=== PATIENT | male | born 1950 | race Caucasian/White ===

== ENCOUNTER 2016-07-26 08:29 | Day surgery (SDC) | payer MEDICARE ==
--- NOTE | ~2016-07-26 | EGD ---
EGD REPORT [facility] [address] [address] NAME: BRADY GOODWIN : [birth year] STATUS : REG [facility] [place] PAT#: [id number] AGE: 65 ADM/REG DATE : 07/26/16 MR#: [id number] REPORT SERV DATE: 07/26/16 DICTATED BY: BRADY SCOTT DATE: 07/26/16 REPORT STATUS : Draft TRANSCRIBED BY: [employer] DATE: 07/26/16 [facility]oscopy Center Patient Name: Brady Goodwin Date of : 1950 Attending MD: BRADY SCOTT MD Procedure Date No Time: 07/26/2016 Procedure: Colonoscopy Indications: Rectal bleeding, FH of Colon Cancer - 1st degree relative Referring MD: FELECIA PEARSON Medicines: as per anesthesia Complications: No immediate complications. Procedure: Pre-Anesthesia Assessment: - ASA Grade Assessment: III - A patient with severe systemic disease. After I obtained informed consent, the scope was passed under direct vision. Throughout the procedure, the patient's blood pressure, pulse, and oxygen saturations were monitored continuously. The PCF [id number] was introduced through the anus and advanced to the cecum, identified by appendiceal orifice and ileocecal valve. The colonoscopy was somewhat difficult due to a tortuous colon. The patient tolerated the procedure. The quality of the bowel preparation was fair. Findings: The perianal and digital rectal examinations were normal. Internal hemorrhoids were found during endoscopy and were mild. Impression: - Internal hemorrhoids. Recommendation: - Repeat colonoscopy in 5 years for surveillance. Procedure Code(s): --- Professional --- 98426, Colonoscopy, flexible, proximal to splenic flexure; diagnostic, with or without collection of specimen(s) by brushing or washing, with or without colon decompression (separate procedure) Diagnosis Code(s): --- Professional --- K64.8, Other hemorrhoids K62.5, Hemorrhage of anus and rectum Z80.0, Family history of malignant neoplasm of digestive organs EGD REPORT [facility] [address] [place] [address] [address] [address] NAME: BRADY GOODWIN : [birth year] STATUS : REG [facility]#: [id number] AGE: 65 ADM/REG DATE : 07/26/16 MR#: [id number] REPORT SERV DATE: 07/26/16 DICTATED BY: BRADY SCOTT. DATE: 07/26/16 REPORT STATUS : Draft TRANSCRIBED BY: [employer] DATE: 07/26/16 CPT copyright 2013 [employer]. All rights reserved. The codes documented in this report are preliminary and upon engine buildup mechanic review may be revised to meet current compliance requirements. BRADY SCOTT MD 07/26/2016 11:08 AM This report has been signed electronically. Number of Addenda: 0 Note Initiated On: 07/26/2016 10:17 AM Scope Withdrawal Time 0 hours 12 minutes 38 seconds [address] [place] [address]
--- NOTE | ~2016-07-26 | EGD ---
EGD REPORT [facility] [address] [address] NAME: VARSHA GOODWIN : [birth year] STATUS : [facility] [place] PAT#: [id number] AGE: 65 ADM/REG DATE : 07/26/16 MR#: [id number] REPORT SERV DATE: 07/26/16 DICTATED BY: VARSHA SCOTT DATE: 07/26/16 REPORT STATUS : Draft TRANSCRIBED BY: [employer] DATE: 07/26/16 Endoscopy Center Patient Name: Varsha Goodwin Date of : 1950 Attending MD: VARSHA SCOTT MD Procedure Date No Time: 07/26/2016 Procedure: Upper GI endoscopy Indications: Periumbilical abdominal pain, Melena, Personal history of peptic ulcer disease Referring MD: FELECIA PEARSON Medicines: as per anesthesia Complications: No immediate complications. Procedure: Pre-Anesthesia Assessment: - ASA Grade Assessment: III - A patient with severe systemic disease. After obtaining informed consent, the endoscope was passed under direct vision. Throughout the procedure, the patient's blood pressure, pulse, and oxygen saturations were monitored continuously. The GIF H190 [id number] was introduced through the mouth, and advanced to the third part of duodenum. The upper GI endoscopy was accomplished without difficulty. The patient tolerated the procedure. Findings: A prior Ayla fundoplication was found at the gastroesophageal junction. This was characterized by an intact appearance. The entire examined stomach was normal. The examined duodenum was normal. Impression: - A Ayla fundoplication was found. - Normal stomach. - Normal examined duodenum. Recommendation: - Continue present medications. Procedure Code(s): --- Professional --- 89507, Esophagogastroduodenoscopy, flexible, transoral; diagnostic, including collection of specimen(s) by brushing or washing, when performed (separate procedure) Diagnosis Code(s): --- Professional --- Z98.0, Intestinal bypass and anastomosis status R10.33, Periumbilical pain K92.1, Melena EGD REPORT [facility] [address] [address] NAME: VARSHA GOODWIN : [birth year] STATUS : [facility] [place] PAT#: [id number] AGE: 65 ADM/REG DATE : 07/26/16 MR#: [id number] REPORT SERV DATE: 07/26/16 DICTATED BY: VARSHA SCOTT. DATE: 07/26/16 REPORT STATUS : Draft TRANSCRIBED BY: [employer] DATE: 07/26/16 Z87.11, Personal history of peptic ulcer disease CPT copyright 2013 [employer]. All rights reserved. The codes documented in this report are preliminary and upon alligator trapper review may be revised to meet current compliance requirements. VARSHA SCOTT MD 07/26/2016 10:37 AM This report has been signed electronically. Number of Addenda: 0 Note Initiated On: 07/26/2016 10:19 AM Scope Withdrawal Time 0 hours 0 minutes 0 seconds [address] [address]
[~2016-07-26 08:29] MED LIST: ASAB PO; BACDS PO; BENICAR HCT1 TAB PO; C1 PO; C2 PO; C5 PO; CLEOCIN300 MG PO; COREG25 PO; COREG3 PO; COUMADIN6 MG PO; COUMADIN7.5 MG PO; COZ50 PO; COZAAR100 MG PO; Coumadin PO; FLORASTOR250 MG PO; GLUCPH PO; HYDROCHLOROT12.5 MG PO; HYZAAR 50/12.51 TAB PO; IRON325 MG PO; L40 PO; LORTAB10 PO; NEUR300 PO; PCET PO; PRAVAC PO; PRIN20 PO; THERA-M PO; TYLENOL 8 HR650 MG PO; V5 PO; WARFARIN; ZANTAC150 MG PO; ZYDONE1 TA2 PO
[2016-07-26 09:11] LABS: INTERNATIONAL NORMAL RATI 1.3 UNITS (-); PROTIME (NOT ORD) 16.3 SEC (12.0-14.5)
== END 2016-07-26 23:59 | disposition home or self-care (01) ==
LOC: DMU 08:29
PROVIDERS: Anesthesiology; Internal Medicine Gastroenterology
PROC: 0DJD8ZZ Inspection of Lower Intestinal Tract, Via Natural or Artificial Opening Endoscopic (ICD-10-PCS; principal; 2016-07-26 10:00)
PROC: 0DJ08ZZ Inspection of Upper Intestinal Tract, Via Natural or Artificial Opening Endoscopic (ICD-10-PCS; 2016-07-26 10:00)
DX: K64.8 Other hemorrhoids (principal); I10 Essential (primary) hypertension; E11.9 Type 2 diabetes mellitus without complications; M19.90 Unspecified osteoarthritis, unspecified site; Z80.0 Family history of malignant neoplasm of digestive organs; Z98.0 Intestinal bypass and anastomosis status; Z87.891 Personal history of nicotine dependence; Z86.718 Personal history of other venous thrombosis and embolism; Z79.01 Long term (current) use of anticoagulants; Z79.84 Long term (current) use of oral hypoglycemic drugs; Z79.899 Other long term (current) drug therapy; Z88.5 Allergy status to narcotic agent; Z88.1 Allergy status to other antibiotic agents; Z88.0 Allergy status to penicillin; Z91.041 Radiographic dye allergy status; Z88.6 Allergy status to analgesic agent; Z97.2 Presence of dental prosthetic device (complete) (partial); Z96.653 Presence of artificial knee joint, bilateral; Z90.49 Acquired absence of other specified parts of digestive tract; Z98.890 Other specified postprocedural states
CPT/HCPCS: 82962; 85610